=== PATIENT | male | born 1995 | race African-American/Black ===

== ENCOUNTER 2025-01-06 01:20 | Inpatient (IN) | payer MEDICAID, OTHER, SELFPAY ==
--- OUTSIDE RECORDS SUMMARY | 2025-01-05 01:26 | XMS_ITS | Encounter Summary ---
Author Organization [facility] Address [address] [place] [address] Care Team Providers Care Advertising Editor Name Role Phone No, Pcp Primary Care Provider Unavailabl e Reason for Visit * Reason Comments Psych Complaint Encounter Details Date Type Department Care Team (Late st Contact Info) Description 01/05/2025 1:26 AM EDT - 01/05/2025 11:27 PM EDT Emergency [facility] Emergency Medicine [address] [place] [address] [phone] Rm Cali MD [address] [place] [id number] David Conti DO [address] [place] [id number] Andrew Awad MD [address] [place] [phone] Depression with suicidal ideation (Primary Dx); Alcoholic intoxication without complication (CMS/HCC); Elevated LFTs Discharge Disposition: Short Term Hospital Social History Tobacco Use Types Packs/Day Years Used Date Smoking Tobacco: Never Assessed Humiliation, Afraid, Rape, and Kick questionnair e Answer Date Recorded Within the last year, have y ou been afraid of your partner or ex-partner? No 01/05/2025 Emotionally Abused Not on file 01/05/2025 Physically Abused Not on file 01/05/2025 Sexually Abused Not on file 01/05/2025 Sex and Gender Information Value Date Recorded Sex Assigned at Male 09/15/2024 6:44 PM EDT Legal Sex Male 6:44 PM EDT Gender Identity Not on file Sexual Orientation Not on file documented as of this encounter Last Filed Vital Signs Vital Sign Reading Time Taken Comments Blood Pressure 131/77 01/05/2025 11:21 PM EDT Pulse 63 01/05/2025 11:21 PM EDT Temperature 36.5 C (97.7 F) 01/05/2025 11:21 PM EDT Respiratory Rate 16 01/05/2025 11:21 PM EDT Oxygen Saturation 98% 01/05/2025 11:21 PM EDT Inhaled Oxygen Concentration - - Weight - - Height 160 cm (5' 3 ) 01/05/2025 2:30 AM EDT Body Mass Index - - documented in this encounter Progress Notes * Shelley Farmer - 01/05/2025 2:40 PM EDT 1505: [facility] called and will consider pt for admission after Utox and EKG are obtained. Nandini/MARLYN informed. Inpt psych referral submitted to [facility] documented in this encounter ED Notes Only the most recent of 11 notes is shown. * Boubacar Merida RN - 01/05/2025 11:26 PM EDT Patient leaves with EMS, is calm and cooperative, EMS is given report, receiving facility updated, EMS leaves with all paperwork and all patient belongings. Boubacar Merida RN 01/05/25 1948 documented in this encounter Miscellaneous Notes * Plan of Care - Sheri Solorzano - 01/05/2025 7:10 PM EDT [facility] accepted pt for 01/05/25 at 9:30pm Accepting MD; Dr Magi Bates Address; [address] [place] [address] Nurse from [facility] to call Basilio for nurse to nurse * Initial Evaluation - Felix Muir - 01/05/2025 7:56 AM EDT Initial Evaluation [facility] Patient Name: Howard Harrington : 1995 Assessment Date: 01/05/25 Language: Filipino Creole and an freelance interpreter/translator was present- Heaven Means of Arrival: ambulance Present in Session: patient Communication Factors: language barrier to treatment, freelance interpreter/translator or communication devices requiredand Filipino Creole freelance interpreter/translator, Heaven used Referral Source: Pt was sectioned by [place] police. Referral Source Contact: [facility] Additional Sources of Information: Uday Monaco [phone] Pt provided the following non-working number for his Mother: Laxmi [phone] Chief Complaint: I was stressed out and they called the park recreation manager . History of Present Illness: Pt is a 29yo male who is Filipino Creole speaking only who was BIB police after he was found to be intoxicated and voicing SI. The pt arrived tot he ED being verbally combative with police. In triage, the pt became tearful and was asking to leave stating he has to work in the morning. 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 He believes his family was upset w/him so they called the police. APURVA 187 at 2:15 am. This remote mortgage underwriter called and spoke to [place] Police. They received a call from Uday Pelaezmes [phone], the pt's brother, who reported the pt reportedly made statements that he wanted to kill everyone and kill himself. He reportedly explained the pt came home intoxicated, was aggressive and yelling, causing a disturbance, and requesting he be removed. Upon evaluation by this remote mortgage underwriter, pt states he was taking a shower and talking on a the phone w/a friend. His mother and father started arguing with him over nothing, then they called the police. Pt c/o it was only 8pm. Pt admits, I was stressed out and they called the park recreation manager . Pt denies making any threats. Pt is adamant, I didn't threaten nobody. I don't know what they're talking about. Pt deniesany current, recent, or hx of SI or passive SI. Pt also denies HI//AH/VH/VH. He denies any issuesw/his mood other than admitting he has a temper which is triggered by how people treat me. I'm agood person. I'm a good kid. I don't want to hurt myself or anybody and denies any hx of being violent. This remote mortgage underwriter eventually was able to reach pt's brother, Uday Monaco [phone]- He reports that last night the pt was intoxicated and trying to fight everyone in the family. He reported the SI andHI threat. He reports the pt is making SI statements about wanting to kill himself all the time and while sober. He also reports an increase in HI threats to kill others, including family members and just people in general. The brother does not know if he has been drinking during these statements. The brother reports that the pt has been starting physical fights w/people outside on the streetlately. He notes that something is wrong and he is not right for some time and these threats are becoming more frequent. The brother reports the family section 35 him last year and the pt was placed for a month. Ballard Screen (C-SSRS) Risk Level: C-SSRS Risk Level: 0 Low Risk (0.5-1.5) Moderate Risk (2-4.5) High Risk (5+) Suicide Inquiry: Suicidal Thoughts (Frequency, Duration, Intensity/Controllability): Pt adamantly denies making any SI threats. Pt denies any current, recent, or hx of SI or passive SI or remarks. Pt's family called 911 and c/o that the pt threatened to kill everyone and then kill himself. The pt's brother reports the pt has been making frequent SI statements while intoxicated and while sober. Suicide Plan (timing, location): Pt denies Availability of Means: Pt denies Preparatory Acts/Behaviors: Pt denies Intent (lethality): Pt denies making the statement or any statement that could be perceived as a threat. History of Attempts: No If Yes, Describe (type of attempt including interrupted, self-interrupted, when, precipitants, means, level of impulsivity, intent, outcome): Pt denies Risk Behaviors: Past and Current Risk/Safety Assessment Behaviors Risk History and Active Aggressive/Assaultive Pt denies this but family called 911 last night c/o the pt being aggressive. Pt's brother reports the pt has been starting physical fights w/strangers on the street lately. Homicidal Ideation/Attempts Pt denies this but family called 911 last night c/o the pt making a vague HI threat to everyone . Self-Injurious Behavior Not active and denies history Sexualized Behavior Not active and denies history Elopement Not active and denies history Fire Setting Not active and denies history Property Destruction Not active and denies history Cruelty to Animals Not active and denies history Pica/Swallowing objects Not active and denies history Somatic Functioning Sleep: unremarkable Weight: no change Appetite: no change Eating Behaviors: unremarkable Energy: developmentally appropriate Additional History Past Psychiatric Care No previous psychiatric treatment reported Past Psychiatric Medications: No previous history of past psychiatric medication use Current Treatment for Psychiatric Care Pt denies any hx of MH txmt or dx. Pt denies any outpt providers at all including not having a PCP. 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 Pt initially told this remote mortgage underwriter, I don't drink ever but then stated he drinks only on weekends, socially. Pt reports that last night he had 3 beers and I wasn't drunk last night . When questioned about recent ED visits coinciding with etoh use (pt seen in November for a head injurywhile intoxicated) the pt dismissed any etoh concerns. MJ: Pt reports he smokes 2-3x/week w/last use, yesterday. Family History: denies No family history on file. No current facility-administered medications for this encounter. No current outpatient medications on file. Side effects noted: N/A Allergies: No Known Allergies PCP: Pcp MD Latoya There is no problem list on file for this patient. No past medical history on file. Mental Status Examination: Pt seen via telespsych w/use of Filipino Creole freelance interpreter/translator, Heaven. Pt confirmed ID via last name and . Appearance/behavior: Appears stated age. Well groomed. Manner: Cooperative. Guarded. Pt answered only what was asked of him Orientation: Oriented x 3. Time. [address]. Person. Situation. Musculoskeletal: Observed to be laying down in bed Motor: Unremarkable. Speech: Normal volume. Normal rhythm Normal rate Language: Able to repeat words Able to name objects Fluent both in his catawba language but also spoke full sentences in Korean Mood: Pt denies any issues or hx with anxiety or depression or mood swings. He does report he has atemper and is triggered by how people treat me. Affect: Appropriate. Thought process: Linear. Guarded Associations: Intact. Thought content: Unremarkable. Perception: No hallucinations. Suicidal ideation: Denies. Pt denies any current, recent, or hx of SI or passive SI. 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 Pt denies HI/ and denies making any HI threats ACCOUNTS PAYABLE MANAGER or ever. Insight: Developmentally appropriate. Judgement: TBD w/collateral from family Recent and remote memory: Pt has a different recollection of events that what the police reported Attention and concentration: Developmentally appropriate. Fund of knowledge: Adequate. Risk/Protective Factors: General: Male and Active Substance Abuse Access to a Gun: No Psychiatric Symptoms: Family reports SI and HI threats while sober and intoxicated Suicidal Behavior: Pt denies but family endorses Harm to Others: Direct violent threat toward identified person and History of impulsive, explosive actions Elopement Risk: None Protective Factors: Family/friends/caregivers willing and able to support patient Adequacy of evaluation and feedback: Have you interviewed informant other than patient?: Yes Are supportive adults available to watch carefully for 24 hours and ensure a follow-up appointment?: N/A Is family prepared to remove or secure pills, guns, and other weapons from the home?: N/A Suicide Risk Level: Moderate Aggression Risk Level: Moderate Elopement Risk Level: Low Formulation/Rationale for Level of Care: Pt meets section 12 criteria due to being an imminent threat to himself and others. *If you have picked any of the starred items above, and you plan to discharge patient, explain the reasons for your decision: N/A *I attest that in my suicide assessment of this patient I identified suicide risk and protective factors, conducted a suicide inquiry, determined the level of suicide risk and the intervention(s) to best address this risk: Yes Diagnoses: F39 Unspecified Mood Disorder, F10.20 etoh, F12.20 cannabis Initial Plan: Collateral contacts with Brother and [place] PD Client meets level of care Disposition: Inpatient, involuntary- IPBS Legal Status: Section 12 Authorization: none I have counseled the patient/family about: the need for supervision until the follow up Disposition and treatment plan options discussed with patient, parent, and/or legal guardian: Yes. Does the patient have any Advanced Psychiatric Directives? No Case, disposition and treatment plan discussed with instant powder supervisor: Yes, Dr. Conti 10:19 Total Time: 1.5 hrs Signature: Felix Muir [facility] Electronic Signature documented in this encounter Plan of Treatment Pending Results Name Type Priority Associated Diagnoses Date /Time ECG 12 Lead ECG STAT 01/05/2025 5: 27 PM EDT documented as of this encounter Procedures Procedure Name Priority Date/Time Associated Diagnosis Comments URINE DRUG SCREEN STAT 01/05/2025 6:0 6 PM EDT CONVERSION BUPRENORPHINE SUBOXONE SCREEN Routine 01/05/2025 6:06 PM EDT ECG 12-LEAD STAT 01/05/2025 5:27 PM EDT COMPREHENSIVE METABOLIC PANEL STAT 01/05/2025 2:15 AM EDT CBC NO DIFF STAT 01/05/2025 2:15 AM EDT ETHANOL LEVEL STAT 01/05/2025 2:15 AM EDT documented in this encounter Results * Buprenorphine Suboxone Screen (01/05/2025 6:06 PM EDT) Buprenorphine Suboxone Scrn None Detected 01/05/2025 6:59 PM EDT [facility] 01/05/2025 6:06 PM EDT 01/05/2025 6:41 PM EDT us Juan Guerrero MD LAB BLOOD ORDERABLES Final Resu lt [facility] [address] [place] [address], [facility] [address] [place] [address] * (ABNORMAL) Urine Drug Screen (01/05/2025 6:06 PM EDT) Amphetamine Scrn, Ur None Detected 01/05/2025 6:59 PM EDT [facility] Benzodiazepine Screen, Urine None Detected 01/05/2025 6:59 PM T [facility] Cannabinoid Screen, Urine POSITIVE SCREEN(A) 01/05/2025 6:59 PM T [facility] Cocaine Screen, Ur POSITIVE SCREEN(A) 01/05/2025 6:59 PM EDT [facility] Fentanyl Screen, Urine None Detected 01/05/2025 6:59 PM [facility] Comment: This test was developed and its performance characteristics determined by the Clinical Biochemistry Lab. It has not been cleared or approved by the [place] Food and Drug Administration but the [place] regulations permit its development under the laboratory license. This test and method is defined in the clinical lab guide and should not be regarded as investigational or research use only. Methadone Screen, Urine None Detected 01/05/2025 6:59 PM T [facility] Opiate Screen, Urine None Detected 01/05/2025 6:59 PM [facility] Comment: Note: Drug of abuse immunoassay results are from screening methods. Positive screening results that are not confirmed are reported as POSITIVE SCREEN. If confirmatory testing is desired, it must be requested as a separate order to the Toxicology Lab WITHIN 5 DAYS of sample collection. Unconfirmed screening results should only be used for medical purposes. Oxycodone Scrn, Ur None Detected 01/05/2025 6:59 PM T [facility] Urine URINE SPECIMEN OBTAINED BY CLEAN CATCH PROCEDURE / Unknown 01/05/2025 6:06 PM EDT 01/05/2025 6:41 PM EDT Andrew Awad MD URINE ORDERABLES Final Result Performing Organization Address [facility]/ZIP Co de Phone Number [facility] [address] [place] [address], [facility] [address] [place] [address] * (ABNORMAL) Ethanol Level (01/05/2025 2:15 AM EDT) Ethanol Level 187(H) Not Detected MG/DL 01/05/2025 3:01 AM [facility] Blood 01/05/2025 2:15 AM EDT 01/05/2025 2:25 AM EDT Rm Cali MD LAB BLOOD ORDERABLES Final Resul t [facility] [address] [place] [address], [facility] [address] [place] [address] * (ABNORMAL) Comprehensive Metabolic Panel (01/05/2025 2:15 AM EDT) Glucose 104(H) 67 - 99 MG/DL 01/05/2025 3:01 AM [facility] BUN 9 6 - 24 MG/DL 01/05/2025 3:01 AM [facility] Creat Level 0.84 0.64 - 1.27 MG/DL 01/05/2025 3:01 AM [facility] eGFR 120 >90 mL/min/1.7 3m exp2 01/05/2025 3:01 AM [facility] Comment:Calculated using the CKD-epi 2020 race-free equation. BUN Creatinine Ratio 11 01/05/2025 3:01 AM [facility] Sodium 140 135 - 145 mEq/L 01/05/2025 3:01 AM [facility] Potassium 3.5(L) 3.6 - 5.1 mEq/L 01/05/2025 3:01 AM [facility] Chloride 104 98 - 110 mEq/L 01/05/2025 3:01 AM [facility] CO2 20 20 - 29 mEq/L 01/05/2025 3:01 AM [facility] Anion Gap 16(H) 3 - 13 01/05/2025 3:01 AM [facility] Albumin 5.1 3.4 - 5.1 G/DL 01/05/2025 3:01 AM [facility] Alkaline Phosphatase 120 40 - 129 U/L [facility] ALT 90(H) 14 - 63 U/L 01/05/2025 3:01 AM [facility] AST (SGOT) 49(H) 15 - 41 U/L 01/05/2025 3:01 AM [facility] Bilirubin, Total 0.4 0.1 - 1.2 mg/dL 01/05/2025 3:01 AM [facility] Calcium 8.8 8.4 - 10.2 MG/DL 01/05/2025 3:01 AM [facility] Protein, Total 7.9 6.1 - 8.3 g/dL 01/05/2025 3:01 AM [facility] Blood 01/05/2025 2:15 AM EDT 01/05/2025 2:25 AM EDT Rm Cali MD LAB BLOOD ORDERABLES Final Resul t Performing Organization Address City/State/[facility] Co de Phone Number [facility] [address] [place] [address], [facility] [address] [place] [address] * (ABNORMAL) CBC No Diff (01/05/2025 2:15 AM EDT) WBC 10.5(H) 4.2 - 10.0 [id number]/L 01/05/2025 2:30 AM [facility] RBC 5.62(H) 4.50 - 5.60 [id number]/L 01/05/2025 2:30 AM [facility] Hemoglobin 18.0(H) 13.4 - 16.0 g/dL 01/05/2025 2:30 AM [facility] Hematocrit 49.0 41.2 - 51.0 % 01/05/2025 2:30 AM [facility] MCV 87.2 85.2 - 100.2 fL 01/05/2025 2:30 AM [facility] MCH 32.0 27.0 - 32.4 pg 01/05/2025 2:30 AM [facility] MCHC 36.7(H) 29.5 - 34.2 g/dL 01/05/2025 2:30 AM EDT [facility] RDW 11.7(L) 11.8 - 14.4 % 01/05/2025 2:30 AM EDT [facility] Platelets 216 168 - 382 [id number]/L 01/05/2025 2:30 AM EDT [facility] MPV 8.5(L) 9.6 - 12.5 fL 01/05/2025 2:30 AM EDT [facility] NRBC % 0.0 -1.0 - 0.0 % 01/05/2025 2:30 AM EDT [facility] NRBC (absolute) 0.0 [id number]/L 2:30 AM T [facility] 01/05/2025 2:15 AM EDT 01/05/2025 2:25 AM EDT Rm Cali MD LAB BLOOD ORDERABLES Final Resul t Performing Organization Address City/State/[facility] Co de Phone Number [facility] [address] [place] [address], [facility] [address] [place] [address] documented in this encounter Visit Diagnoses Diagnosis Depression with suicidal ideation- Primary Alcoholic intoxication without complication (CMS/HCC) Elevated LFTs Other abnormal blood chemistry documented in this encounter Care Teams Advertising Editor Relationship Specialty Start Date End Date No, MD Zacarias No Address No [place] [address] PCP - General Internal Medicine 12/04/24 documented as of this encounter
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
[2025-01-06 01:35] VITALS: BP 138/95; PULSE 57; RESP 18; TEMP 36.4; O2SAT 96; BMI 26.9
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
[2025-01-06 07:20] VITALS: BP 108/56; PULSE 44; RESP 14; TEMP 36.1; O2SAT 989
--- NOTE | 2025-01-06 08:13 | P.CONHOSP_ITS ---
History of Present Illness Data of Consult Service Date: 01/06/25 Primary Care Provider: Ember Physician HPI Reason for consult: Medical consult 29-year-old male with a past medical history of EtOH abuse who presents to [facility] with the police after he was found to be intoxicated and voicing suicide ideation. Per outside reports, patient has been becoming increasingly aggressive with family and strangers. On exam his LFTs are mildly elevated consistent with alcohol intake, otherwise unremarkable. He has some mild anemia. Alcohol level 187 on presentation. EKG demonstrates bradycardia rate of 48 on admission. On exam he has no medical concerns, denies any past medical history. Review of Systems Review of Systems: Denies any shortness of breath, chest pain, palpitations, dizziness, lightheadedness, headaches, dysuria, abdominal pain or discomfort, nausea, vomiting or diarrhea. Denies chills, body aches, muscle aches, fatigue or weight loss. PMFSH Social History Household Members: Family Patient Tobacco Use Status: Current everyday Tobacco user Tobacco use type: Cigarette Cigarettes Per Day: 2 Smoked in Last 30 Days: Yes Patient Interested in Nicotine Replacement: No Advance Directives: No Advance Directives Information Provided: No Advance Directives on File: No Do you have a plan to hurt others: No Plan Recently lost weight without trying: No Nutrition Risks: No Nutritional Risk service: No Sexual orientation: Straight/Heterosexual Meds Allergies Allergy/AdvReac Type Severity Reaction Status Date / Time No Known Allergies Allergy Verified 01/06/25 02:51 Active Medications: Current Medications Acetaminophen (Acetaminophen 325 Mg Tablet) 650 mg PO Q6H PRN PRN Reason: Headache/Pain, Scale 1-10 Al Hydroxide/Mg Hydroxide (Magnesium Hydrox/Alum Hydrox 30 Ml Oral.Susp) 30 ml PO Q6H PRN PRN Reason: Heartburn/Nausea Hydroxyzine HCl (Hydroxyzine Hcl 25 Mg Tablet) 25 mg PO Q6H PRN PRN Reason: mild anxiety Magnesium Hydroxide (Milk Of Magnesia 30 Ml Oral.Susp) 30 ml PO DAILY PRN PRN Reason: Constipation Nicotine (Nicotine 21 Mg Patch.Td24) 21 mg TRANSDERMA DAILY PRN PRN Reason: smoking cessation Nicotine Polacrilex (Nicotine Polacrilex 2 Mg Gum) 4 mg BUCCAL Q2H PRN PRN Reason: Nicotine Cravings Olanzapine (Olanzapine 5 Mg Tablet) 5 mg PO TID PRN PRN Reason: agitation Trazodone HCl (Trazodone Hcl 50 Mg Tablet) 50 mg PO BEDTIME MRX1 PRN PRN Reason: Insomnia Home Medications ?Medication ?Instructions ?Recorded ?Confirmed ?Last Taken ?Type No Known Home Meds 01/06/25 01/06/25 Un known History Physical Exam Vital Signs and Narrative: Vital Signs: Last Vital Signs Temp 97.6 F 01/06/25 01:35 Pulse 57 01/06/25 01:35 Resp 18 01/06/25 01:35 BP 138/95 H 01/06/25 01:35 Pulse Ox 96 01/06/25 01:35 O2 Del Method Room Air 01/06/25 01:35 BMI result Body Mass Index 26.9 CONST: Alert and oriented, in NAD. Well nourished HEENT: Normocephalic, atraumatic, MMM, Eyes clear, Neck supple RESP: Lungs clear, RRR even and regular HEART:,RRR, S1, S2. No edema GI:Abdomen Soft NT, ND. + BS times four :Deferred SKIN: Warm dry and intact, no visible lesions or rashes NEURO:CN II-XII Intact bilaterally, Sensation intact. Speech clear PSYCH: Normal affect, cooperative Assessment and Plan (1) ETOH abuse: Status: Acute Plan 29-year-old male with no significant past medical history admitted to inpatient psych after aggressive behavior and intoxication. Aggressive behavior/EtOH abuse Treatment per psychiatric team Thank you for allowing me to participate in the care of this patient. Will follow with you, please notify medical provider with any changes in condition or concerns.
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
[2025-01-06 19:35] VITALS: BP 131/87; PULSE 51; RESP 16; TEMP 36.6; O2SAT 97
--- NOTE | 2025-01-07 10:06 | HO.PSYCHPN ---
Subjective Subjective Date of Service: 01/07/25 Reason For Visit: Decompensation Interim History: Patient reports he is feeling well. Tolerating Naltrexone well. He denies he is feeling suicidal or has thoughts of harming self or anyone else. He described the incident that led for his admission to the hospital. He is sleeping well. There is no evidence of psychosis or self dialogue. Patient respectful and calm. No evidence of withdrawals from alcohol. No tremors. VSS. Review of Systems Review of Systems Denies any shortness of breath, chest pain, palpitations, dizziness, lightheadedness, headaches, dysuria, abdominal pain or discomfort, nausea, vomiting or diarrhea. Denies chills, body aches, muscle aches, fatigue or weight loss. Mental Status Exam Mental Status Exam Narrative: Appearance: Fair grooming/hygiene, good eye contact Attitude:Cooperative Speech: Generally fluent in South African (asked to end call with phone educational sign language interpreter after a few minutes). wnl in regard to volume, tone, prosody Motor activity: Calm and without any tics, tremors or dyskinesias. Steady gait Mood: okay Affect: appropriate, reactive Thought process: goal directed and without evidence of formal thought disorder Thought content: as noted above. Perception: Denies AH/VH and does not appear to respond to internal stimuli Alert/oriented in all spheres Cognition grossly intact Insight: somewhat impaired Judgment: intact Diagnostics Vital Signs (24Hr): Vital Signs - 24 hr 01/06/25 19:35 Temperature 97.9 F Pulse Rate 51 Respiratory Rate 16 Blood Pressure 131/87 Pulse Oximetry 97 Oxygen Delivery Method Room Air BMI result Body Mass Index 26.9 Medications Medications Current Medications Acetaminophen (Acetaminophen 325 Mg Tablet) 650 mg PO Q6H PRN PRN Reason: Headache/Pain, Scale 1-10 Al Hydroxide/Mg Hydroxide (Magnesium Hydrox/Alum Hydrox 30 Ml Oral.Susp) 30 ml PO Q6H PRN PRN Reason: Heartburn/Nausea Hydroxyzine HCl (Hydroxyzine Hcl 25 Mg Tablet) 25 mg PO Q6H PRN PRN Reason: mild anxiety Magnesium Hydroxide (Milk Of Magnesia 30 Ml Oral.Susp) 30 ml PO DAILY PRN PRN Reason: Constipation Naltrexone HCl (Naltrexone Hcl 50 Mg Tablet) 25 mg PO BEDTIME SARA Last Admin: 01/06/25 21:07 Dose: 25 mg Nicotine (Nicotine 21 Mg Patch.Td24) 21 mg TRANSDERMA DAILY PRN PRN Reason: smoking cessation Nicotine Polacrilex (Nicotine Polacrilex 2 Mg Gum) 4 mg BUCCAL Q2H PRN PRN Reason: Nicotine Cravings Olanzapine (Olanzapine 5 Mg Tablet) 5 mg PO TID PRN PRN Reason: agitation Trazodone HCl (Trazodone Hcl 50 Mg Tablet) 50 mg PO BEDTIME MRX1 PRN PRN Reason: Insomnia Last Admin: 01/06/25 21:07 Dose: 50 mg Allergies Allergies Allergy/AdvReac Type Severity Reaction Status Date / Time No Known Allergies Allergy Verified 01/06/25 02:51 Assessment & Plan Assessment & Plan (1) Unspecified mood [affective] disorder: Status: Acute Code(s): F39 - Unspecified mood [affective] disorder Assessment and Plan: Likely substance induced (2) Cocaine use disorder: Status: Acute Code(s): F14.10 - Cocaine abuse, uncomplicated (3) Alcohol use disorder: Status: Acute Code(s): F10.90 - Alcohol use, unspecified, uncomplicated Plan Mr. Mahmood is a 29 y/o single male from [facility] who was brought to the [facility] (in [place]) ED by police after he was found to be intoxicated and reported SI. He was transferred to [facility] and admitted to on a section 12B. U tox was positive for cocaine and cannabis and BAL was 187. Per crisis eval, pt's brother reported that pt was section 35'd for a month last year. Pt admitted to recent cocaine and ETOH use and expresses interest in substance use tx. Plan: Admitted to for safety and stabilization legal status- 12B, expires on 01/11 15 min safety checks admission physical exam completed by hospitalist. labs/EKG reviewed Milieu therapy Collateral contact w/ family Pt is agreeable w/ the following plan: -Start naltrexone 25 mg to reduce ETOH & cocaine cravings -He has prn orders for trazodone 50-100 mg qhs for insomnia, Vistaril 25 mg q 6 hrs prn for anxiety, and olanzapine 5 mg tid prn for agitation -He declined NRT but patch and gum are ordered prn 01/07: continue current management and treatment plan. Reason for continued inpatient stay Substantial Risk for: harm to self and rapid decompensation Time Spent With Patient Time: Total time managing care of this patient today ____ minutes.
[2025-01-07 20:00] VITALS: BP 116/82; PULSE 50; RESP 16; TEMP 37.1; O2SAT 97
[2025-01-08 08:00] VITALS: BP 108/59; PULSE 47; RESP 14; TEMP 36.5; O2SAT 97
--- NOTE | 2025-01-08 09:36 | P.PNPSI_ITS ---
Subjective Subjective Date of Service: 01/08/25 Reason For Visit: Decompensation Interim History: Patient reports he is feeling well. Tolerating Naltrexone well. He denies he is feeling suicidal or has thoughts of harming self or anyone else. He is sleeping well. There is no evidence of psychosis or self dialogue. Patient respectful and calm. No evidence of withdrawals from alcohol. No tremors. VSS. Review of Systems Review of Systems Denies any shortness of breath, chest pain, palpitations, dizziness, lightheadedness, headaches, dysuria, abdominal pain or discomfort, nausea, vomiting or diarrhea. Denies chills, body aches, muscle aches, fatigue or weight loss. Mental Status Exam Mental Status Exam Narrative: Appearance: Fair grooming/hygiene, good eye contact Attitude:Cooperative Speech: Generally fluent in Macedonian (asked to end call with phone car mechanic after a few minutes). wnl in regard to volume, tone, prosody Motor activity: Calm and without any tics, tremors or dyskinesias. Steady gait Mood: okay Affect: appropriate, reactive Thought process: goal directed and without evidence of formal thought disorder Thought content: as noted above. Perception: Denies AH/VH and does not appear to respond to internal stimuli Alert/oriented in all spheres Cognition grossly intact Insight: somewhat impaired Judgment: intact Diagnostics Vital Signs (24Hr): Vital Signs - 24 hr 01/07/25 20:00 01/08/25 08:00 Temperature 98.7 F 97.7 F Pulse Rate 50 47 L Respiratory Rate 16 14 Blood Pressure 116/82 108/59 L Pulse Oximetry 97 97 Oxygen Delivery Method Room Air Room Air BMI result Body Mass Index 26.9 Medications Medications Current Medications Acetaminophen (Acetaminophen 325 Mg Tablet) 650 mg PO Q6H PRN PRN Reason: Headache/Pain, Scale 1-10 Al Hydroxide/Mg Hydroxide (Magnesium Hydrox/Alum Hydrox 30 Ml Oral.Susp) 30 ml PO Q6H PRN PRN Reason: Heartburn/Nausea Hydroxyzine HCl (Hydroxyzine Hcl 25 Mg Tablet) 25 mg PO Q6H PRN PRN Reason: mild anxiety Last Admin: 01/07/25 21:27 Dose: 25 mg Magnesium Hydroxide (Milk Of Magnesia 30 Ml Oral.Susp) 30 ml PO DAILY PRN PRN Reason: Constipation Naltrexone HCl (Naltrexone Hcl 50 Mg Tablet) 25 mg PO BEDTIME SARA Last Admin: 01/07/25 21:27 Dose: 25 mg Nicotine (Nicotine 21 Mg Patch.Td24) 21 mg TRANSDERMA DAILY PRN PRN Reason: smoking cessation Nicotine Polacrilex (Nicotine Polacrilex 2 Mg Gum) 4 mg BUCCAL Q2H PRN PRN Reason: Nicotine Cravings Olanzapine (Olanzapine 5 Mg Tablet) 5 mg PO TID PRN PRN Reason: agitation Trazodone HCl (Trazodone Hcl 50 Mg Tablet) 50 mg PO BEDTIME MRX1 PRN PRN Reason: Insomnia Last Admin: 01/06/25 21:07 Dose: 50 mg Allergies Allergies Allergy/AdvReac Type Severity Reaction Status Date / Time No Known Allergies Allergy Verified 01/06/25 02:51 Assessment & Plan Assessment & Plan (1) Unspecified mood [affective] disorder: Status: Acute Code(s): F39 - Unspecified mood [affective] disorder Assessment and Plan: Likely substance induced (2) Cocaine use disorder: Status: Acute Code(s): F14.10 - Cocaine abuse, uncomplicated (3) Alcohol use disorder: Status: Acute Code(s): F10.90 - Alcohol use, unspecified, uncomplicated Plan Mr. Mahmood is a 29 y/o single male from [facility] who was brought to the [facility] (in [place]) ED by police after he was found to be intoxicated and reported SI. He was transferred to [facility] and admitted to on a section 12B. U tox was positive for cocaine and cannabis and BAL was 187. Per crisis eval, pt's brother reported that pt was section 35'd for a month last year. Pt admitted to recent cocaine and ETOH use and expresses interest in substance use tx. Plan: Admitted to for safety and stabilization legal status- 12B, expires on 01/11 15 min safety checks admission physical exam completed by hospitalist. labs/EKG reviewed Milieu therapy Collateral contact w/ family Pt is agreeable w/ the following plan: -Start naltrexone 25 mg to reduce ETOH & cocaine cravings -He has prn orders for trazodone 50-100 mg qhs for insomnia, Vistaril 25 mg q 6 hrs prn for anxiety, and olanzapine 5 mg tid prn for agitation -He declined NRT but patch and gum are ordered prn 01/07: continue current management and treatment plan. 01/08: continue current management and treatment plan. Reason for continued inpatient stay Substantial Risk for: harm to self and rapid decompensation Time Spent With Patient Time: Total time managing care of this patient today ____ minutes.
[2025-01-08 19:20] VITALS: BP 110/74; PULSE 50; RESP 17; TEMP 36.2; O2SAT 99
[2025-01-09 11:52] VITALS: BP 123/84; PULSE 52; TEMP 36.3; O2SAT 99
--- NOTE | 2025-01-09 17:49 | HO.PSYCHPN ---
Subjective Subjective Date of Service: 01/09/25 Reason For Visit: Decompensation Subjective Notes: Section 12B Interim History: Chart reviewed, case discussed with tx team Met w/ pt in the dayroom, where he was watching TV. He reports feeling 'okay' and that he's been sleeping well. Denies SI. Denies med SE. States that he is glad to be on the naltrexone since he doesn't want to use alcohol or cocaine anymore. He is hoping to be d/c'd on Thu, when 12B expires and states that he can return home w/ his family. Denies AH/VH Medication Compliance: Yes Side effects from medications: No Mental Status Exam Mental Status Exam Narrative: Appearance: Fair grooming/hygiene, good eye contact Attitude:Cooperative Speech: Generally fluent in Portuguese. wnl in regard to volume, tone, prosody Motor activity: Calm and without any tics, tremors or dyskinesias. Steady gait Mood: okay Affect: appropriate, reactive Thought process: goal directed and without evidence of formal thought disorder Thought content: as noted above. Perception: Denies AH/VH and does not appear to respond to internal stimuli Alert/oriented in all spheres Cognition grossly intact Insight: fair Judgment: intact Diagnostics Vital Signs (24Hr): Vital Signs - 24 hr 01/08/25 19:20 01/09/25 11:52 Temperature 97.1 F 97.4 F Pulse Rate 50 52 Respiratory Rate 17 Blood Pressure 110/74 123/84 Pulse Oximetry 99 99 Oxygen Delivery Method Room Air Room Air BMI result Body Mass Index 26.9 Medications Medications Current Medications Acetaminophen (Acetaminophen 325 Mg Tablet) 650 mg PO Q6H PRN PRN Reason: Headache/Pain, Scale 1-10 Al Hydroxide/Mg Hydroxide (Magnesium Hydrox/Alum Hydrox 30 Ml Oral.Susp) 30 ml PO Q6H PRN PRN Reason: Heartburn/Nausea Hydroxyzine HCl (Hydroxyzine Hcl 25 Mg Tablet) 25 mg PO Q6H PRN PRN Reason: mild anxiety Last Admin: 01/07/25 21:27 Dose: 25 mg Magnesium Hydroxide (Milk Of Magnesia 30 Ml Oral.Susp) 30 ml PO DAILY PRN PRN Reason: Constipation Naltrexone HCl (Naltrexone Hcl 50 Mg Tablet) 25 mg PO BEDTIME SARA Last Admin: 01/08/25 21:55 Dose: 25 mg Nicotine (Nicotine 21 Mg Patch.Td24) 21 mg TRANSDERMA DAILY PRN PRN Reason: smoking cessation Nicotine Polacrilex (Nicotine Polacrilex 2 Mg Gum) 4 mg BUCCAL Q2H PRN PRN Reason: Nicotine Cravings Olanzapine (Olanzapine 5 Mg Tablet) 5 mg PO TID PRN PRN Reason: agitation Trazodone HCl (Trazodone Hcl 50 Mg Tablet) 50 mg PO BEDTIME MRX1 PRN PRN Reason: Insomnia Last Admin: 01/06/25 21:07 Dose: 50 mg Allergies Allergies Allergy/AdvReac Type Severity Reaction Status Date / Time No Known Allergies Allergy Verified 01/06/25 02:51 Assessment & Plan Assessment & Plan (1) Unspecified mood [affective] disorder: Status: Acute Code(s): F39 - Unspecified mood [affective] disorder Assessment and Plan: Likely substance induced (2) Cocaine use disorder: Status: Acute Code(s): F14.10 - Cocaine abuse, uncomplicated (3) Alcohol use disorder: Status: Acute Code(s): F10.90 - Alcohol use, unspecified, uncomplicated Plan Mr. Mahmood is a 29 y/o single male from [facility] who was brought to the [facility] (in [place]) ED by police after he was found to be intoxicated and reported SI. He was transferred to [facility] and admitted to on a section 12B. U tox was positive for cocaine and cannabis and BAL was 187. Per crisis eval, pt's brother reported that pt was section 35'd for a month last year. Pt admitted to recent cocaine and ETOH use and expresses interest in substance use tx. Plan: Admitted to for safety and stabilization legal status- 12B, expires on 01/11 15 min safety checks admission physical exam completed by hospitalist. labs/EKG reviewed Milieu therapy Collateral contact w/ family Pt is agreeable w/ the following plan: -Start naltrexone 25 mg to reduce ETOH & cocaine cravings -He has prn orders for trazodone 50-100 mg qhs for insomnia, Vistaril 25 mg q 6 hrs prn for anxiety, and olanzapine 5 mg tid prn for agitation -He declined NRT but patch and gum are ordered prn 01/07: continue current management and treatment plan. 01/08: continue current management and treatment plan. 01/09: No behavoral issues. Tolerating naltrexone well and expresses a desire to abstain from substance use. Continue current tx plan. Section 12B expires on 01/11 Patient educated on: therapeutic strategies Informed Consent: understands Reason for continued inpatient stay Substantial Risk for: med/psych decompensation Time Spent With Patient Time: Total time managing care of this patient today _25___ minutes.
[2025-01-09 20:00] VITALS: BP 133/71; PULSE 52; RESP 16; TEMP 36.1; O2SAT 97
[2025-01-10 07:55] VITALS: BP 101/58; PULSE 51; RESP 20; TEMP 36.2; O2SAT 97
--- NOTE | 2025-01-10 18:26 | HO.PSYCHPN ---
Subjective Subjective Date of Service: 01/10/25 Reason For Visit: Decompensation Interim History: Chart reviewed, case discussed w/ tx team 12B expires tomorrow Pt reports that he's feeling happy because I get to go home tomorrow . He feels like the hospitalization has been helpful in some ways and he's glad to be on the naltrexone, as he wants to abstain from ETOH and cocaine (and also cigarettes). He does plan to continue smoking MJ. Looking forward to RTW. He hasn't contacted his employer and asks for a letter stating that he was hospitalized so he doesn't lose his job He denies SI/violent ideation, AH/VH He reports feeling asleep late last night but slept thru the night Appetite is good Medication Compliance: Yes (taking naltrexone. No prn med use ) Side effects from medications: No Mental Status Exam Mental Status Exam Narrative: Appearance: Fair grooming/hygiene, good eye contact Attitude:Cooperative Speech: Generally fluent in [place]an. wnl in regard to volume, tone, prosody Motor activity: Calm and without any tics, tremors or dyskinesias. Steady gait Mood: as noted above Affect: appropriate, reactive Thought process: goal directed and without evidence of formal thought disorder. Future oriented, looking forward to RTW Thought content: as noted above. Perception: Denies AH/VH and does not appear to respond to internal stimuli Alert/oriented in all spheres Cognition grossly intact Insight: fair Judgment: intact Diagnostics Vital Signs (24Hr): Vital Signs - 24 hr 01/09/25 20:00 01/10/25 07:55 Temperature 97 F 97.2 F Pulse Rate 52 51 Respiratory Rate 16 20 Blood Pressure 133/71 101/58 L Pulse Oximetry 97 97 Oxygen Delivery Method Room Air Room Air BMI result Body Mass Index 26.9 Medications Medications Current Medications Acetaminophen (Acetaminophen 325 Mg Tablet) 650 mg PO Q6H PRN PRN Reason: Headache/Pain, Scale 1-10 Al Hydroxide/Mg Hydroxide (Magnesium Hydrox/Alum Hydrox 30 Ml Oral.Susp) 30 ml PO Q6H PRN PRN Reason: Heartburn/Nausea Hydroxyzine HCl (Hydroxyzine Hcl 25 Mg Tablet) 25 mg PO Q6H PRN PRN Reason: mild anxiety Last Admin: 01/07/25 21:27 Dose: 25 mg Magnesium Hydroxide (Milk Of Magnesia 30 Ml Oral.Susp) 30 ml PO DAILY PRN PRN Reason: Constipation Naltrexone HCl (Naltrexone Hcl 50 Mg Tablet) 25 mg PO BEDTIME SARA Last Admin: 01/09/25 22:06 Dose: 25 mg Nicotine (Nicotine 21 Mg Patch.Td24) 21 mg TRANSDERMA DAILY PRN PRN Reason: smoking cessation Nicotine Polacrilex (Nicotine Polacrilex 2 Mg Gum) 4 mg BUCCAL Q2H PRN PRN Reason: Nicotine Cravings Olanzapine (Olanzapine 5 Mg Tablet) 5 mg PO TID PRN PRN Reason: agitation Trazodone HCl (Trazodone Hcl 50 Mg Tablet) 50 mg PO BEDTIME MRX1 PRN PRN Reason: Insomnia Last Admin: 01/06/25 21:07 Dose: 50 mg Allergies Allergies Allergy/AdvReac Type Severity Reaction Status Date / Time No Known Allergies Allergy Verified 01/06/25 02:51 Assessment & Plan Assessment & Plan (1) Unspecified mood [affective] disorder: Status: Acute Code(s): F39 - Unspecified mood [affective] disorder Assessment and Plan: Likely substance induced (2) Cocaine use disorder: Status: Acute Code(s): F14.10 - Cocaine abuse, uncomplicated (3) Alcohol use disorder: Status: Acute Code(s): F10.90 - Alcohol use, unspecified, uncomplicated Plan Mr. Mahmood is a 29 y/o single male from [facility] who was brought to the [facility] (in [place]) ED by police after he was found to be intoxicated and reported SI. He was transferred to [facility] and admitted to on a section 12B. U tox was positive for cocaine and cannabis and BAL was 187. Per crisis eval, pt's brother reported that pt was section 35'd for a month last year. Pt admitted to recent cocaine and ETOH use and expresses interest in substance use tx. Plan: Admitted to for safety and stabilization legal status- 12B, expires on 01/11 15 min safety checks admission physical exam completed by hospitalist. labs/EKG reviewed Milieu therapy Collateral contact w/ family Pt is agreeable w/ the following plan: -Start naltrexone 25 mg to reduce ETOH & cocaine cravings -He has prn orders for trazodone 50-100 mg qhs for insomnia, Vistaril 25 mg q 6 hrs prn for anxiety, and olanzapine 5 mg tid prn for agitation -He declined NRT but patch and gum are ordered prn 01/07: continue current management and treatment plan. 01/08: continue current management and treatment plan. 01/09: No behavoral issues. Tolerating naltrexone well and expresses a desire to abstain from substance use. Continue current tx plan. Section 12B expires on 01/11 01/10: No behavioral issues or safety concerns throughout this admission. 12B expires tomorrow. Will d/c home tomorrow, continue naltrexone 25 mg qhs Patient educated on: medication risk/benefits and substance abuse Informed Consent: understands Reason for continued inpatient stay Substantial Risk for: med/psych decompensation Time Spent With Patient Time: Total time managing care of this patient today __25__ minutes.
[2025-01-10 20:00] VITALS: BP 117/66; PULSE 80; RESP 20; TEMP 36.5; O2SAT 98
[2025-01-11 09:21] VITALS: BP 132/68; PULSE 59; TEMP 36.3; O2SAT 97
--- NOTE | 2025-01-11 09:39 | PM.PSYDC ---
DS: Providers Provider Date of Service: 01/11/25 Date of admission: 01/06/25 01:20 Date of discharge: 01/11/25 Primary care physician: None Physician Attending physician on admission: Magi Bates Consults: 01/05/25 21:49 Consult to Hospitalist Routine Comment: Consulting Provider: [facility] Reason For Exam: admission physical Attending physician on discharge: Magi Bates DS: Diagnosis Discharge Diagnosis (1) Unspecified mood [affective] disorder: Status: Acute (2) Cocaine use disorder: Status: Acute (3) Alcohol use disorder: Status: Acute DS: Medications Discharge Medications Home Medications: Previous Rx's ?Medication ?Instructions ?Recorded hydroxyzine HCl 25 mg tablet 25 mg PO 2XD PRN mild anxiety 60 01/11/25 days #30 tabs naltrexone 50 mg tablet See Rx Instructions .Route 01/11/25 .COMPLEX 30 days #30 tabs trazodone 50 mg tablet 50 mg PO DAILY PRN Insomnia 30 01/11/25 days #30 tabs DS: Summary Hospital Course Hospital Course: Mr. Mahmood is a 29 y/o single bilingual ([place] Creole is first language, also Citizen [place]) male from [facility] who was brought to the [facility] (in [place]) ED by police after he was found to be intoxicated and reported SI. He was transferred to [facility] and admitted to [facility] on a section 12B. U tox was positive for cocaine and cannabis and BAL was 187. Per crisis eval, pt's brother reported that pt was section 35'd for a month last year. Pt admitted to recent cocaine and ETOH use and expresses interest in substance use tx. Pt Per Crisis eval, pt was verbally combative with police and was tearful in triage since he was worried about missing work. Per collateral information obtained from [place] police by crisis, pt's brother (Uday Monaco) reported that pt made statements that he wanted to kill everyone and himself after coming home intoxicated, aggressive and yelling. BAL was 187 and UDS was positive for cannabis and cocaine. Per information gathered from pt's brother by Crisis- pt makes SI statements all the time and while sober and has made HI threats to kill others, including family members and 'just people' in general. He reported that pt has been starting physical fights w/ people on the streets. The family reportedly section 35'd pt last year and he was placed for a month. T/W met with pt along w/ SW, initially utilizing a [place] [employer] core blower operator over the phone. Pt was able to communicate in [place] and asked to hang up with the core blower operator since the sound quality on the phone was poor and it was difficult to understand her. Pt reports I don't know why I am here, this is my first time . He reports that he came home (where he lives with his parents and brother) around 11 pm after drinking 3 beers, took a shower and then he spoke to a friend on the phone. His mother came into his room talking loud at me and then his brother and father came in and there was an argument. His brother called the police and he admits that he was aggressive with the police bc I respect people and want them to respect me . He reports that his family moved from [facility] to the when he was 18 and he misses living there since life in the [place] is stressful. He has a 6 y/o dtr from a previous relationship and reports that he started using cocaine after a break-up with the child's mother. He denies ever making any suicidal statements or any h/o SI or self harming behavior. He denies any h/o violence or violent ideation. Denies any h/o psychosis or alexander Denies significant h/o depression Pt denies taking any prescribed or OTC medications Past Psychiatric History: Pt denies any h/o mental health treatment Denies h/o self harm or violence Medical Evaluation Reviewed: Yes PMFSH Family History: Pt denies Social History: Raised by both parents in [facility]. He moved [place] is family [place] the [place] at age 18. Lives with his parents and brother. 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 Denies h/o problems with ETOH Smokes 2-3 cigarettes when he works, not daily Occasional cocaine use, reports last use was over the weekend h/o section 35 per family ~1 yr ago Trauma History: Denies Plan: Admitted to M3 for safety and stabilization legal status- 12B, expires on 01/11 15 min safety checks admission physical exam completed by hospitalist. labs/EKG reviewed Milieu therapy Collateral contact w/ family Pt is agreeable w/ the following plan: -Start naltrexone 25 mg to reduce ETOH & cocaine cravings -He has prn orders for trazodone 50-100 mg qhs for insomnia, Vistaril 25 mg q 6 hrs prn for anxiety, and olanzapine 5 mg tid prn for agitation -He declined NRT but patch and gum are ordered prn 01/07: continue current management and treatment plan. 01/08: continue current management and treatment plan. 01/09: No behavoral issues. Tolerating naltrexone well and expresses a desire to abstain from substance use. Continue current tx plan. Section 12B expires on 01/11 01/10: No behavioral issues or safety concerns throughout this admission. 12B expires tomorrow. Will d/c home tomorrow, continue naltrexone 25 mg qhs Patient educated on: medication risk/benefits and substance abuse Time Spent with Patient Time attestation: Total time managing care of this patient today ____ minutes. Discharge Plan Discharge Anticipated Discharge Date/Time: 01/11/25 12:00 Patient Disposition: Home, Self-Care Discharge Diagnosis: Substance induced mood disorder Alcohol use disorder Cocaine use disorder Referrals: [facility] ([facility]) [Other] - 1 Week Referral Note: WALK IN HOURS ARE THURSDAY-THURSDAY 8AM-8PM, WEEKEND HOURS ARE 9AM-5PM [facility] [Provider Group] - 1 Week Referral Note: 01-10-25 [facility] was added to patients chart. Please call [phone] to schedule a follow up appt within 7-10 days of discharge. No release or PCP on file. Discharge Medications: New hydroxyzine HCl 25 mg Tablet 25 mg PO 2XD PRN (Reason: mild anxiety) 60 Days Qty: 30 0RF trazodone 50 mg Tablet 50 mg PO DAILY PRN (Reason: Insomnia) 30 Days Qty: 30 0RF naltrexone 50 mg Tablet See Rx Instructions .ROUTE .COMPLEX 30 Days Qty: 30 0RF Rx Instructions: Take 1/2 tab po qhs x 4 days then take 1 tab po qhs Discharge Orders: Discharge Order (Routine); Ordered 01/11/25 Ordered By: Magi Bates Diet: Regular diet Activity on Discharge: As tolerated Stand Alone Forms: Patient Portal Discharge page Print Language: Argentine Care Plan Goals: Maintain safe behaviors Practice coping skills Take medications as prescribed Continue to pursue sobriety Maintain regular follow-ups with your outpatient providers Health Concerns: Mood stability and behaviors Substance use Plan of Treatment: Follow up with your psychiatric provider, PCP and other outpatient providers Take your medication as prescribed Assessment: Risk assessment at the time of discharge: Patient was interviewed on the day of discharge and found to be fully oriented, without any SI or violent ideation. Pt has improved insight and judgment and plans to continue treatment Pt is not at imminent risk of harm to self or others and has a safety plan that includes presenting to the closest ER or calling 911 if feeling unsafe. Pt has been observed closely by unit staff and has not engaged in any behaviors that suggest dangerous to self or others and has demonstrated appropriate bheaviors and impulse control. Pt is motivated to abstain from substance use
== END 2025-01-11 10:46 | disposition home or self-care (01) | DRG 753 ==
PROVIDERS: Admitting Provider Psychiatry & Neurology Psychiatry; Visit Provider Psychiatry & Neurology Psychiatry
DX: F39 Unspecified mood [affective] disorder (principal); F10.10 Alcohol abuse, uncomplicated; F14.10 Cocaine abuse, uncomplicated; F17.210 Nicotine dependence, cigarettes, uncomplicated; Z71.6 Tobacco abuse counseling

== ENCOUNTER → 2025-01-06 01:20 | Outpatient (BNV) | payer SELFPAY | PROVIDERS: Admitting Provider Psychiatry & Neurology Psychiatry; Visit Provider Psychiatry & Neurology Psychiatry | DX: F14.10 Cocaine abuse, uncomplicated (principal); F10.90 Alcohol use, unspecified, uncomplicated; F39 Unspecified mood [affective] disorder | CPT/HCPCS: 90792 ==

== ENCOUNTER → 2025-01-06 01:20 | Outpatient (BNV) | payer SELFPAY | PROVIDERS: Admitting Provider Psychiatry & Neurology Psychiatry; Visit Provider Nurse Practitioner Family | DX: F10.10 Alcohol abuse, uncomplicated (principal) | CPT/HCPCS: 99221 ==